=== PATIENT | male | born 1970 | race Caucasian/White ===

== ENCOUNTER 2017-01-01 14:41 | Emergency (ER) | payer SELFPAY ==
[~2017-01-01] VITALS: Ht 172.7 cm; Wt 97.9 kg
[~2017-01-01 14:41] MED LIST: ACID1TAB3 PO; CLIN300C93 PO; HYDR-3240 PO; LISI-167 PO
[2017-01-01] MEDS ORDERED: LIDOCAINE 1%, 20ML SQ ONE (15:00)
[2017-01-01 16:34] VITALS: BP 199/124
[2017-01-02] MEDS ORDERED: HYDROmorphone 1 MG/ML, 1ML ONE (00:05)
[2017-01-02] MEDS ORDERED: ONDANSETRON 2MG/ML, 2ML ONE (00:05)
== END 2017-01-01 17:13 | disposition home or self-care (01) ==
LOC: ED 17:02
DX: L03.011 Cellulitis of right finger (principal); I10 Essential (primary) hypertension; Z76.0 Encounter for issue of repeat prescription
CPT/HCPCS: 99284